=== PATIENT | male | born 1980 | race Caucasian/White ===

== ENCOUNTER 2023-10-28 07:51 | Day surgery (SDC) | payer OTHER ==
[2023-10-23 18:47] VITALS: BMI 27.5
[2023-10-28] MEDS: LACTATED RINGERS 1,000 ML IV SCH (08:15)
[2023-10-28 08:38] VITALS: RESP 16; TEMP 97
[2023-10-28] MEDS ORDERED: PROPOFOL 10 MG/ML 20 ML VIAL IV ONE (09:08)
[2023-10-28] MEDS ORDERED: LIDOCAINE 1% INJ 10MG/ML (20 ML MDV) ONE (09:08)
--- NOTE | 2023-10-28 09:32 | P.PCN ---
Date of Procedure: 10/28/23 Procedure(s) Performed: BRIEF HISTORY: Patient is a 43-year-old pleasant white male scheduled for an elective colonoscopy as a part of evaluation of chronic diarrhea for the last 2015 years duration. He usually has 5 loose watery bowel movements daily but no blood or mucus in the stool. PROCEDURE PERFORMED: Colonoscopy with random biopsy. PREOPERATIVE DIAGNOSIS: Chronic diarrhea for 10 years duration . IV sedation per Anesthesia. PROCEDURE: After informed consent was obtained, the patient, was brought into the endoscopy unit. IV sedation was administered by Anesthesia under continuous monitoring. Digital rectal examination was normal. Initially the Olympus CF-160 flexible video colonoscope was then inserted in the rectum, gradually advanced into the cecum without any difficulty. Careful examination was performed as the scope was gradually being withdrawn. Ileocecal valve and the appendiceal orifice were visualized and appeared normal. Prep was excellent. Mucosa of the cecum, ascending colon, transverse colon, descending colon, sigmoid colon, and rectum appeared normal. Random biopsies were done from ascending and descending colon to rule out microscopic/collagenous colitis Retroflexion was performed in the rectum and no lesions were seen. The patient tolerated the procedure well. IMPRESSION: Normal-appearing colon from rectum to cecum with no evidence of colorectal neoplasia Small internal hemorrhoids. RECOMMENDATIONS: Findings of this examination were discussed with the patient as well as his family. He was advised to follow with the biopsy results. Continue with Dipentum 10 mg 4 times daily as needed and follow up in office in 6 weeks..
[2023-10-28 10:17] VITALS: BP 113/69; PULSE 71
== END 2023-10-28 10:31 | disposition home or self-care (01) ==
LOC: ORWHC2ENDO 07:51
PROVIDERS: ATTEND Internal Medicine Gastroenterology
DX: K64.8 Other hemorrhoids (principal); I10 Essential (primary) hypertension; F41.9 Anxiety disorder, unspecified; F43.10 Post-traumatic stress disorder, unspecified; D70.8 Other neutropenia; Z79.899 Other long term (current) drug therapy; Z98.890 Other specified postprocedural states; Z91.030 Bee allergy status
CPT/HCPCS: 45380; J2001; J2704; 88305

== ENCOUNTER → 2023-12-10 | Outpatient (CLI) | payer OTHER ==
--- NOTE | 2023-12-10 15:24 | XR ---
EXAMINATION TYPE: XR thoracic spine complete DATE OF EXAM: 12/10/2023 CLINICAL HISTORY: pain TECHNIQUE: Frontal, lateral, and swimmer's view of thoracic spine are obtained. COMPARISON: None. FINDINGS: Thoracic spine show satisfactory alignment without evidence of acute fracture or dislocatio n. Vertebral body heights are preserved. Mild scattered degenerative disc space narrowing and mild v entral spondylosis. Visualized ribs are unremarkable. IMPRESSION: No acute fracture or dislocation is seen in the thoracic spine. ICD 10 NO FRACTURE, INIT IAL EVALUATION
--- NOTE | 2023-12-10 15:25 | XR ---
EXAMINATION TYPE: XR lumbosacral spine min 4V DATE OF EXAM: 12/10/2023 CLINICAL HISTORY: pain COMPARISON: NONE TECHNIQUE: Frontal, lateral, and oblique images of the lumbar spine are obtained. FINDINGS: There are 5 lumbar type vertebral bodies identified. The lumbar spine shows satisfactory alignment without evidence of acute fracture or dislocation. Vertebral body heights are within normal limits. Disc spaces are well preserved. The overlying soft tissue appears unremarkable. IMPRESSION: No acute fracture or dislocation is seen in the lumbar spine.ICD 10 NO FRACTURE, INITIAL EVALUATION
--- NOTE | 2023-12-10 15:36 | XR ---
EXAMINATION TYPE: XR cervical spine comp DATE OF EXAM: 12/10/2023 CLINICAL HISTORY: pain COMPARISON: NONE TECHNIQUE: Frontal, lateral, oblique, swimmers, and open mouth view of the cervical spine are obtaine d. FINDINGS: The cervical spine is visualized in its entirety from C1 thru the top of T1 level. It is s atisfactory in alignment without evidence of acute fracture or dislocation. The pre-vertebral soft t issue appears within normal limits. Disc spaces are well preserved. The C1-C2 articulation is unremar kable on the open mouth view. The oblique images are within normal limits. IMPRESSION: No acute fracture or dislocation is seen in the cervical spine.ICD 10 NO FRACTURE, INITI AL EVALUATION
--- NOTE | 2023-12-11 07:51 | XR ---
EXAMINATION TYPE: XR knee complete bilateral DATE OF EXAM: 12/10/2023 COMPARISON: NONE HISTORY: Pain TECHNIQUE: Three views of bilateral knee are submitted. FINDINGS: Joint spaces are preserved. Osseous structures are intact. No acute fracture seen. IMPRESSION: 1. No abnormality identified. If symptoms persist consider MRI..
== END | disposition home or self-care (01) ==
LOC: RADXRMAIN 14:23
PROVIDERS: ATTEND Family Medicine
DX: M17.9 Osteoarthritis of knee, unspecified (principal); M54.40 Lumbago with sciatica, unspecified side; M54.6 Pain in thoracic spine; M50.30 Other cervical disc degeneration, unspecified cervical region
CPT/HCPCS: 72050; 72072; 72110

== ENCOUNTER → 2024-02-02 | Outpatient (CLI) | payer OTHER ==
[2024-02-03 03:13] LABS: C Reactive Protein <0.30 mg/dL (0.00-0.80); Creatine Kinase 569 U/L (35-257); Rheumatoid Factor, Qnt <15 IU/mL (0-15); Uric Acid 6.8 mg/dL (3.7-8.7)
[2024-02-03 03:14] LABS: ALT 85 U/L (10-49); AST 54 U/L (14-35); Blood Urea Nitrogen 16.5 mg/dL (9.0-27.0); Carbon Dioxide 25.6 mmol/L (21.6-31.8); Chloride 99 mmol/L (96-109); Glucose 101 mg/dL (70-110); Potassium 3.9 mmol/L (3.5-5.5); Sodium 138 mmol/L (135-145); T4, Free (Free Thyroxine) 1.26 ng/dL (0.80-1.80)
[2024-02-03 04:14] LABS: HCT 43.5 % (39.6-50.0); HGB 15.1 g/dL (13.0-17.0); Lymphocytes # (M) 1.37 X 10*3/uL (0.90-5.00); MCH 31.9 pg (27.0-32.0); MCHC 34.7 g/dL (32.0-37.0); MCV 91.8 FL (80.0-97.0); Mean Platelet Volume 10.6 FL (9.5-12.2); NRBC Per 100 WBC 0 X 10*3/uL (0.00-0.01); Platelet Count 244 X 10*3/uL (140-440); RBC 4.74 X 10*6/uL (4.40-5.60); RDW 11.5 % (11.5-14.5); WBC 2.54 X 10*3/uL (4.50-10.00)
[2024-02-03 04:21] LABS: Eosinophils # (M) 0.03 X 10*3/uL (0.04-0.35); Monocytes # (M) 0.46 X 10*3/uL (0.20-1.00); Neutrophils # (M) 0.58 X 10*3/uL (1.80-7.70); Neutrophils % (M) 23 %; RBC Morphology Normal (Normal)
[2024-02-03 04:47] LABS: Erythrocyte Sedimentation Rate 18 mm/Hr (0-15)
[2024-02-03 05:55] LABS: Cyclic Citrull Pep IgG Unit <1.5 U/mL (<=3.9); Cyclic Citrullinated Pep IgG Negative
[2024-02-03 10:19] LABS: Angiotensin-1 Converting Enz. 36 U/L (8-52)
[2024-02-03 12:40] LABS: HLA B27 NEGATIVE
== END | disposition home or self-care (01) ==
LOC: LABWHC1 16:22
PROVIDERS: ATTEND Podiatrist
DX: M72.2 Plantar fascial fibromatosis (principal); M21.6X1 Other acquired deformities of right foot; M21.6X2 Other acquired deformities of left foot
CPT/HCPCS: 36415; 80048; 82164; 82306; 82550; 83520; 84439; 84443; 84450; 84460; 84550; 85025; 85652; 86038; 86140; 86200; 86431; 86812

== ENCOUNTER → 2024-05-20 | Outpatient (CLI) | payer OTHER ==
[2024-05-20 18:33] LABS: Basophils # (A) 0.07 X 10*3/uL (0.00-0.10); Basophils % (A) 1.6 %; Eosinophils % (A) 2.3 %; HGB 14.6 g/dL (13.0-17.0); Lymphocytes # (A) 1.78 X 10*3/uL (0.90-5.00); Lymphocytes % (A) 41.5 %; MCH 32.5 pg (27.0-32.0); MCHC 34.8 g/dL (32.0-37.0); MCV 93.5 FL (80.0-97.0); Mean Platelet Volume 11.1 FL (9.5-12.2); Monocytes # (A) 0.63 X 10*3/uL (0.20-1.00); Monocytes % (A) 14.7 %; NRBC Per 100 WBC 0 X 10*3/uL (0.00-0.01); Neutrophils # (A) 1.69 X 10*3/uL (1.80-7.70); Neutrophils % (A) 39.4 %; Platelet Count 281 X 10*3/uL (140-440); RBC 4.49 X 10*6/uL (4.40-5.60); RDW 10.9 % (11.5-14.5); WBC 4.29 X 10*3/uL (4.50-10.00)
[2024-05-20 20:46] LABS: ALT 170 U/L (10-49); AST 69 U/L (14-35); Albumin 4.5 g/dL (3.8-4.9); Albumin/Globulin Ratio 1.67 Ratio (1.60-3.17); Alkaline Phosphatase 67 U/L (41-126); Blood Urea Nitrogen 13.5 mg/dL (9.0-27.0); Calcium 9.7 mg/dL (8.7-10.3); Carbon Dioxide 22.7 mmol/L (21.6-31.8); Chloride 103 mmol/L (96-109); Globulin 2.7 g/dL (1.6-3.3); Glucose 98 mg/dL (70-110); Sodium 140 mmol/L (135-145); Total Bilirubin 0.3 mg/dL (0.3-1.2); Total Protein 7.2 g/dL (6.2-8.2)
== END | disposition home or self-care (01) ==
LOC: LABWHC1 14:07
PROVIDERS: ATTEND Internal Medicine Hematology & Oncology
DX: D70.8 Other neutropenia (principal)
CPT/HCPCS: 36415; 80053; 85025